=== PATIENT | female | born 1960 | race Caucasian/White ===

== ENCOUNTER 2024-09-13 14:10 | Outpatient (CLI) | payer BC ==
[2024-09-13 15:09] VITALS: PULSE 101; RESP 18; O2SAT 97
== END 2024-09-13 23:59 | disposition home or self-care (01) ==
LOC: RT 14:10
PROVIDERS: ATTEND Student in an Organized Health Care Education/Training Program
DX: J44.9 Chronic obstructive pulmonary disease, unspecified (principal)
CPT/HCPCS: 94010; 94760; J7030